=== PATIENT | female | born 1965 | race Caucasian/White ===

== ENCOUNTER 2019-11-03 18:13 | Emergency (ER) | payer BC ==
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
[2019-11-03] MEDS ORDERED: MORPHINE SULFATE 4 MG INJ IM ONE (19:45)
[2019-11-03] MEDS ORDERED: ZOFRAN ODT 4 MG PO ONE (19:46)
[2019-11-03] MEDS ORDERED: ZOFRAN ODT 4 MG ONE (19:55)
[2019-11-03] MEDS ORDERED: DELTASONE 20 MG ONE (19:55)
[2019-11-03] MEDS ORDERED: MORPHINE SULFATE 4 MG INJ ONE (19:56)
[2019-11-03] MEDS ORDERED: PERCOCET TABLET 5/325MG PO STA (21:07)
[2019-11-03] MEDS ORDERED: PERCOCET TABLET 5/325MG ONE (21:09)
[2019-11-03 21:21] VITALS: BP 144/86; PULSE 81; O2SAT 97
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
[2019-11-04] MEDS ORDERED: DELTASONE 20 MG PO ONE (19:47)
== END 2019-11-03 21:14 | disposition home or self-care (01) ==
LOC: ED 18:13
DX: M54.9 Dorsalgia, unspecified (principal); M54.5 Low back pain; S30.0XXA Contusion of lower back and pelvis, initial encounter; V89.2XXA Person injured in unspecified motor-vehicle accident, traffic, initial encounter
CPT/HCPCS: 72100; 72220; 96372; 99284; J2270; Q0162; A9270-GY

== ENCOUNTER 2022-06-24 03:31 | Emergency (ER) | payer BC ==
[2022-06-24 03:46] VITALS: O2SAT 98
[2022-06-24 04:56] LABS: INFLUENZA B NEGATIVE (NEGATIVE); RESPIRATORY SYNCTIAL VIRUS NEGATIVE (Negative); SARS-CoV-2 Xpert Express NEGATIVE (NEGATIVE)
[2022-06-24 04:59] LABS: INFLUENZA A POSITIVE (NEGATIVE)
[2022-06-24] MEDS ORDERED: Sodium Chloride 0.9% 1000 ML 1,000 ML IV STA (05:13)
[2022-06-24] MEDS ORDERED: TORAdol 30 mg Injection IV ONE (05:13)
[2022-06-24] MEDS ORDERED: Tamiflu 75MG Capsule PO ONE ×2 (05:14→05:19)
[2022-06-24] MEDS ORDERED: TYLENOL 325 MG PO ONE (05:14)
[2022-06-24] MEDS ORDERED: TORAdol 30 mg Injection ONE (05:16)
[2022-06-24] MEDS ORDERED: TYLENOL EXTRA STRENGTH 500 MG ONE (05:16)
[2022-06-24] MEDS ORDERED: Sodium Chloride 0.9% 1000 ML 1,000 ML ONE (05:16)
[2022-06-24] MEDS ORDERED: TYLENOL 325 MG ONE (05:20)
--- NOTE | 2022-06-24 05:29 | ERPHSYRPT ---
- History of Present Illness Time Seen by Provider: 06/24/22 05:29 Source: patient Exam Limitations: no limitations Patient Subjective Stated Complaint: pt states she has had a sore throat and dry cough. states her chest is sore and she feels achy all over. did not take temp at home. Triage Nursing Assessment: pt alert and oriented and able to answer questions appropriatly. pt appears comfortable laying in bed on back. pt does not have SOB and )2 is 97% on RA, pt is intermittently coughing. Physician History: Patient is a 57-year-old female presents emergency department for evaluation of sore throat cough and myalgias. Patient states she has been coughing excessively and her throat is raw and chest is burning. Patient has history of asthma. No wheezing. Symptoms started 2 days ago. Symptoms are constant. Symptoms are moderate in intensity. No specific worsening improving factors. Patient voices no other complaints or concerns at this time. Portions of this note were created with voice recognition technology. There may be grammatical, spelling, punctuation or sound alike errors Timing/Duration: day(s) Severity: moderate (2 days ago) Modifying Factors: Improves With: nothing Associated Symptoms: nausea (No nausea currently), No vomiting, No abdominal pain, No shortness of breath, No diaphoresis, No headaches, No syncope, No seizure Allergies/Adverse Reactions: No Known Drug Allergies Allergy (Verified 12/16/12 06:37) Home Medications: Albuterol Sulfate Mdi [Proair Hfa MDI] 2 puff IH DAILY 11/22/12 [History] Fluticasone/Salmeterol [Advair 100-50 Diskus] 1 each IH BID 11/22/12 [History] ALPRAZolam 0.5 MG [xanAX 0.5 MG] 0.5 mg PO HS 11/03/19 [History] Losartan Potassium [Cozaar] 100 mg PO DAILY 11/03/19 [History] Hx Tetanus, Diphtheria Vaccination/Date Given: No Hx Influenza Vaccination/Date Given: Yes Hx Pneumococcal Vaccination/Date Given: No Travel Risk - International Travel Have you traveled outside of the country in past 3 weeks: No - Coronavirus Screening Are you exhibiting any of the following symptoms?: Yes Symptoms: Cough: New Onset, Headaches/Body Aches/Fatigue Close contact with a COVID-19 positive Pt in past 14-21 Days: No - Vaccine Status Have you recieved a Covid-19 vaccination: Yes [employer]rentice: [employer] - Vaccination Dates Date of 2cond Vaccination (if applicable): unknown - Review of Systems Constitutional: No Symptoms, No Fever, No Chills Eyes: No Symptoms Ears, Nose, & Throat: No Symptoms Respiratory: No Symptoms, No Cough, No Dyspnea Cardiac: No Symptoms, No Chest Pain, No Edema, No Syncope Abdominal/Gastrointestinal: No Symptoms, No Abdominal Pain, No Nausea, No Vomiting, No Diarrhea Genitourinary Symptoms: No Symptoms, No Dysuria Musculoskeletal: No Symptoms, No Back Pain, No Neck Pain Skin: No Symptoms, No Rash Neurological: No Symptoms, No Dizziness, No Focal Weakness, No Sensory Changes Psychological: No Symptoms Endocrine: No Symptoms Hematologic/Lymphatic: No Symptoms Immunological/Allergic: No Symptoms All Other Systems: Reviewed and Negative - Past Medical History Pertinent Past Medical History: Yes Neurological History: No Pertinent History ENT History: No Pertinent History Cardiac History: No Pertinent History Respiratory History: Asthma Endocrine Medical History: No Pertinent History Musculoskeletal History: No Pertinent History GI Medical History: Irritable Bowel History: No Pertinent History Psycho-Social History: Anxiety Female Reproductive Disorders: No Pertinent History Other Medical History: recent bacteremia and possible colitis - Past Surgical History Past Surgical History: Yes Neuro Surgical History: No Pertinent History Cardiac: No Pertinent History Respiratory: No Pertinent History Gastrointestinal: Cholecystectomy Genitourinary: Other Musculoskeletal: Other Female Surgical History: Tubal Ligation, Other Other Surgical History: carpal tunnel to rt hand, bladder tucked - Social History Smoking Status: Never smoker Exposure to second hand smoke: No Drug Use: none Patient Lives Alone: No - Nursing Vital Signs Nursing Vital Signs: Initial Vital Signs Temperature 98.8 F 06/24/22 03:35 Pulse Rate 98 H 06/24/22 03:35 Respiratory Rate 18 06/24/22 03:35 Blood Pressure 154/82 06/24/22 03:35 O2 Sat by Pulse Oximetry 97 06/24/22 03:35 Pain Scale Pain Intensity 2 - Physical Exam General Appearance: no apparent distress, alert Eye Exam: PERRL/EOMI, eyes nml inspection Ears, Nose, Throat Exam: normal ENT inspection, TMs normal, pharynx normal, moist mucous membranes, other (Mild pharyngitis) Neck Exam: normal inspection, non-tender, supple, full range of motion Respiratory Exam: normal breath sounds, lungs clear, airway intact, No chest tenderness, No respiratory distress Cardiovascular Exam: regular rate/rhythm, normal heart sounds, normal peripheral pulses Gastrointestinal/Abdomen Exam: soft, normal bowel sounds, No tenderness, No distention, No mass Back Exam: normal inspection, normal range of motion, No CVA tenderness, No vertebral tenderness Extremity Exam: normal inspection, normal range of motion, pelvis stable Neurologic Exam: alert, oriented x 3, cooperative, normal mood/affect, nml cerebellar function, nml station & gait, sensation nml, No motor deficits Skin Exam: normal color, warm, dry, No rash Lymphatic Exam: No adenopathy SpO2 Interpretation: normal SpO2: 98 O2 Delivery: Room Air - Course Nursing assessment & vital signs reviewed: Yes EKG Interpreted by Me: RATE (87), Sinus Rhythm, NORMAL AXIS, NORMAL INTERVALS Ordered Tests: Active Orders 24 hr Category Date Time Status CHEST 1 VIEW (PORTABLE) Stat Exams 06/24/22 03:49 Taken UA W/RFX CULTURE Stat Lab 06/24/22 Ordered Medication Summary Discontinued Medications Generic Name Dose Route Start Last Admin Trade Name Brandonq PRN Reason Stop Dose Admin Acetaminophen 975 mg 06/24/22 05:14 06/24/22 05:21 Acetaminophen 325 Mg Tablet PO 06/24/22 05:15 975 mg STAT ONE Administration Acetaminophen Confirm 06/24/22 05:16 Acetaminophen 500 Mg Tablet Administered 06/24/22 05:17 Dose 1,000 mg .ROUTE .STK-MED ONE Acetaminophen Confirm 06/24/22 05:20 Acetaminophen 325 Mg Tablet Administered 06/24/22 05:21 Dose 975 mg .ROUTE .STK-MED ONE Sodium Chloride 1,000 mls @ 999 mls/hr 06/24/22 05:13 06/24/22 05:21 Sodium Chloride 0.9% 1000 Ml IV 06/24/22 06:13 999 mls/hr .Q1H1M STA Administration Sodium Chloride Confirm 06/24/22 05:16 Sodium Chloride 0.9% 1000 Ml Administered 06/24/22 05:17 Dose 1,000 mls @ ud .ROUTE .STK-MED ONE Ketorolac Tromethamine 30 mg 06/24/22 05:13 06/24/22 05:22 Ketorolac Tromethamine 30 Mg/Ml Inj IV 06/24/22 05:14 30 mg STAT ONE Administration Ketorolac Tromethamine Confirm 06/24/22 05:16 Ketorolac Tromethamine 30 Mg/Ml Inj Administered 06/24/22 05:17 Dose 30 mg .ROUTE .STK-MED ONE Oseltamivir Phosphate 75 mg 06/24/22 05:14 06/24/22 05:22 Oseltamivir 75 Mg Cap PO 06/24/22 05:15 75 mg STAT ONE Administration Oseltamivir Phosphate Confirm 06/24/22 05:19 Oseltamivir 75 Mg Cap Administered 06/24/22 05:20 Dose 75 mg PO .STK-MED ONE Lab/Rad Data: Laboratory Results 06/24/22 06/24/22 06/24/22 Range/Units 06:00 04:18 04:18 Urinalys Dipstick Clnc MAIN LAB Urine Color YELLOW (YELLOW) Urine Appearance CLEAR (CLEAR) Urine pH 7.0 (5-6) Ur Specific [place] 1.025 (1.005-1.025) POC Urine Protein Conf NEGATIVE (Negative) Urine Ketones NEGATIVE (NEGATIVE) Urine Nitrite NEGATIVE (NEGATIVE) Urine Bilirubin NEGATIVE (NEGATIVE) Urine Urobilinogen 0.2 (0-1) mg/dL Urine Leukocytes TRACE A (NEGATIVE) Urine WBC (Auto) 3-5 A (0-5) /HPF Urine RBC (Auto) 3-5 A (0-2) /HPF U Epithel Cells (Auto) RARE (FEW) /HPF Urine Bacteria (Auto) NONE (NEGATIVE) /HPF Urine RBC TRACE-INTACT A (0-5) Kaz/ul Ur Culture Indicated? NO Urine Glucose NEGATIVE (NEGATIVE) mg/dL Influenza Type A Ag POSITIVE (NEGATIVE) Influenza Type B Ag NEGATIVE (NEGATIVE) RSV (PCR) NEGATIVE (Negative) SARS-CoV-2 (PCR) NEGATIVE (NEGATIVE) Group A Strep Antibody NOT DETECTED (NEGATIVE) - Progress Progress: improved Progress Note: Patient reassessed. She feels much better. Patient influenza A positive. Urinalysis negative for UTI. EKG normal sinus rhythm. Symptoms significantly improved. Patient states he is ready for discharge. A prescription for Tamiflu was forwarded to patient's pharmacy along with Fay. Patient understands the importance of hydration and maintenance of nutrition. Patient understands importance of rest. Patient is contagious and is mindful not to pass the influenza infection onto friends family casual encounters. Patient agrees to follow-up with her primary care doctor within 48 hours. Significant other at bedside. They voiced no other complaints or concerns at this time. Portions of this note were created with voice recognition technology. There may be grammatical, spelling, punctuation or sound alike errors 06/24/22 06:28 Counseled pt/family regarding: lab results, diagnosis, rad results - Departure Departure Disposition: Home Clinical Impression: Influenza A Condition: Stable Critical Care Time: No Referrals: LALITO GONG [Primary Care Provider] - Follow up/PCP as directed Additional Instructions: Discharge/Care Plan CHADDANTESUSSYCOSMOREBECAGRAZYNA HUNT was seen on 06/24/22 in the Emergency Room. The patient was counseled regarding Diagnosis,Lab results, Imaging studies, need for follow up and when to return to the Emergency Room. Prescriptions given: Discharge Note I have spoken with the patient and/or caregivers. I have explained the patient's condition, diagnosis and treatment plan based on the information available to me at this time. I have answered the patient's and/or caregiver's questions and addressed any concerns. The patient and/or caregivers have as good understanding of the patient's diagnosis, condition and treatment plan as can be expected at this point. The vital signs have been stable. The patient's condition is stable and appropriate for discharge from the emergency department. The patient will pursue further outpatient evaluation with the primary care physician or other designated or consulting physician as outlined in the discharge instructions. The patient and/or caregivers are agreeable to this plan of care and follow-up instructions have been explained in detail. The patient and/or caregivers have received these instruction. The patient/and or caregivers are aware that any significant change in condition or worsening of symptoms should prompt an immediate return to this or the closest emergency department or call 911. Prescriptions: Ondansetron ODT 4 MG [Zofran Odt 4 mg] 4 mg PO Q6H PRN PRN #10 tablet PRN Reason: Vomiting Oseltamivir 75 mg [Tamiflu 75MG Capsule] 75 mg PO BID #10 cap
[2022-06-24 06:09] LABS: Epithelial Cells RARE /HPF (FEW)
[2022-06-24 06:10] VITALS: BP 99/85; PULSE 95
[2022-06-24 06:13] LABS: Appearance CLEAR (CLEAR); Bilirubin NEGATIVE (NEGATIVE); Glucose NEGATIVE (NEGATIVE); Ketones NEGATIVE (NEGATIVE); RBC TRACE-INTACT Ery/ul (0-5); Specific Gravity 1.025 (1.005-1.025)
[2022-06-24 06:14] LABS: Dipstick done @ ? MAIN LAB; Nitrite NEGATIVE (NEGATIVE); Protein,Urine Dip NEGATIVE (Negative); Urine Cultured Indicated? NO; Urobilinogen 0.2 mg/dL (0-1)
--- NOTE | 2022-06-24 09:09 | XRAY ---
Indication: Cough. Comparison: December 05, 2012 Portable chest remains inflated and clear. Heart not enlarged. Bony thorax intact. No new/acute findings.
== END 2022-06-24 06:50 | disposition home or self-care (01) ==
LOC: ED 03:31
DX: J10.1 Influenza due to other identified influenza virus with other respiratory manifestations (principal); R05.1 Acute cough; M79.10 Myalgia, unspecified site; Z79.899 Other long term (current) drug therapy
CPT/HCPCS: 0241U; 71045; 81015; 87651; 96374; 96375; 99284; J1885; A9270-GY

== ENCOUNTER 2023-03-01 05:39 | Day surgery (SDC) | payer BC ==
[2023-03-01] MEDS ORDERED: Lactated Ringers 1,000 ML IV SCH (06:30)
[2023-03-01 06:37] VITALS: RESP 16
[2023-03-01] MEDS ORDERED: Xylocaine-Mpf 2% 5 Ml Vial ONE (07:28)
[2023-03-01] MEDS ORDERED: DIPRIVAN 200 MG/20 ML IV ONE ×2 (07:28→07:44)
[2023-03-01] MEDS ORDERED: ATROPINE SULFATE 1MG ONE (07:44)
[2023-03-01 08:37] VITALS: BP 101/71; PULSE 84; TEMP 97; O2SAT 96
--- NOTE | 2023-03-01 10:57 | OP ---
SURGERY DATE/TIME: 03/01/2023 6947 PREOPERATIVE DIAGNOSIS: Screening exam. POSTOPERATIVE DIAGNOSIS: Small transverse colon polyp otherwise normal colon. PROCEDURE: Colonoscopy with cold forceps biopsy. SURGEON: Dr. Olguin. ANESTHESIA: Medications given by anesthesia department. HISTORY: The patient is a 57-year-old white female presenting now for screening colonoscopy. She reports she had a previous examination ten years ago which was normal. The patient is here now for screening examination. She was appraised of the risks of the procedure including the risk of perforation, phlebitis, untoward reaction to medication, bleeding and missed lesions. The patient verbalized her understanding and desired to have the procedure performed. DESCRIPTION OF PROCEDURE: The patient was given the medications by the anesthesia department. She had continuous pulse oximetry, ECG monitoring and intermittent blood pressure monitoring during the examination. She was placed in the left lateral decubitus position. A digital rectal examination was performed and revealed normal anal sphincter tone, no masses, a few small external hemorrhoids were noted. The flexible Olympus pediatric colonoscope was used to intubate the rectum. A view of the colon was developed sequentially to the cecum. Upon insertion and withdrawal was noted a small polyp measuring approximately 0.75 cm in size in the transverse colon this is removed using multiple passes with cold forceps biopsy tool. No other mucosal lesions being noted the scope was removed from the patient who tolerated the procedure well and was sent back to OP recovery in good condition. The prep was noted to be good.
== END 2023-03-01 08:44 | disposition home or self-care (01) ==
LOC: SDC 05:39
PROVIDERS: ATTEND Family Medicine
DX: Z12.11 Encounter for screening for malignant neoplasm of colon (principal); D12.3 Benign neoplasm of transverse colon; K64.4 Residual hemorrhoidal skin tags
CPT/HCPCS: J0461; J2704

== ENCOUNTER 2025-04-12 18:19 | Observation (INO) | payer BC ==
[2025-04-12 18:41] LABS: Hematocrit 42.6 % (34.1-44.9); Hemoglobin 13.5 g/dL (11.2-15.7); Mean Corpuscular Hemoglobin 28.1 pg (25.6-32.2); Mean Corpuscular Hgb Concent. 31.7 g/dL (32.2-35.5); Platelet Count 286 x10^3/uL (182-369); Red Blood Count 4.81 x10^6/uL (3.93-5.22); White Blood Count 10.7 x10^3/uL (3.98-10.04)
--- NOTE | 2025-04-12 18:48 | ERPHSYRPT ---
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 The onset was approximately 1730 after she worked all day. Patient also complains of some left upper and left lower extremity weakness. Patient denies chest pain and patient denies shortness of breath. added independent additional history that the patient's friend recently had a stroke with residual symptoms. This may have prompted the patient to come immediately to the hospital for evaluation. There is no head injury. Patient does have a history of anxiety and depression. She also has a history of irritable bowel syndrome, asthma hypertension and arthritis. Timing/Duration: today Severity: mild Character of Deficits: new weakness (Left upper and left lower extremity), altered sensation (Left upper and left lower extremity as well as left facial numbness), Left Facial, LLE, LUE Deficits: no difficulties Baseline/Normal Cognition: alert oriented x 3 Current Cognition: alert oriented x 3 Baseline Gait: walks w/o assistance Associated Symptoms: numbness/tingling in legs/feet (Left upper and left lower extremity as well as left facial numbness), No slurred speech, No trouble walking, No vision changes, No chest pain, No headache Allergies/Adverse Reactions: No Known Drug Allergies Allergy (Verified 04/12/25 19:59) Home Medications: Albuterol Sulfate Mdi [ALBUTEROL/Proair Hfa MDI] 2 puff IH DAILY PRN PRN 11/22/12 [History] Losartan Potassium [Cozaar] 100 mg PO DAILY 11/03/19 [History] Amlodipine Besylate 5 mg [Norvasc 5 mg] 5 mg PO DAILY 01/29/23 [History] Atorvastatin Calcium 40 mg PO DAILY 01/29/23 [History] Escitalopram Oxalate [Lexapro] 20 mg PO DAILY 01/29/23 [History] Multivitamin/Iron/Folic Acid [Centrum Adults Tablet] 1 tab PO DAILY 01/29/23 [History] Valacyclovir HCl [valACYclovir] 1,000 mg PO DAILY PRN PRN 04/12/25 [History] Hx Tetanus, Diphtheria Vaccination/Date Given: No Hx Influenza Vaccination/Date Given: Yes Hx Pneumococcal Vaccination/Date Given: No Travel Risk - International Travel Have you traveled outside of the country in past 3 weeks: No - Emerging Infectious Disease Are you exhibiting symptoms associated with any current EIDs: No - Review of Systems Constitutional: Weakness (Mild left upper and left lower extremity weakness) Eyes: No Symptoms Ears, Nose, & Throat: No Symptoms Respiratory: No Symptoms Cardiac: No Symptoms Abdominal/Gastrointestinal: No Symptoms Genitourinary Symptoms: No Symptoms Musculoskeletal: No Symptoms Skin: No Symptoms Neurological: Parasthesia (Left facial, left upper and left lower extremities), No Dizziness, No Gait Changes, No Headache, No Speech Changes Psychological: No Symptoms Endocrine: No Symptoms Hematologic/Lymphatic: No Symptoms Immunological/Allergic: No Symptoms All Other Systems: Reviewed and Negative - Past Medical History Pertinent Past Medical History: Yes Neurological History: No Pertinent History ENT History: No Pertinent History Cardiac History: Hypertension Respiratory History: Asthma Endocrine Medical History: No Pertinent History Musculoskeletal History: No Pertinent History GI Medical History: Irritable Bowel History: No Pertinent History Psycho-Social History: Anxiety Female Reproductive Disorders: No Pertinent History Other Medical History: recent bacteremia and possible colitis - Past Surgical History Past Surgical History: Yes Neuro Surgical History: No Pertinent History Cardiac: No Pertinent History Respiratory: No Pertinent History Gastrointestinal: Cholecystectomy Genitourinary: Other Musculoskeletal: Joint Replacement, Other Female Surgical History: Hysterectomy, Tubal Ligation, Other Other Surgical History: carpal tunnel to rt hand, bladder tucked, bilateral knee replacement - Social History Smoking Status: Never smoker Exposure to second hand smoke: No - Nursing Vital Signs Nursing Vital Signs: Initial Vital Signs Temperature 97.6 F 04/12/25 18:19 Pulse Rate 68 04/12/25 18:19 Respiratory Rate 18 04/12/25 18:19 Blood Pressure 127/78 04/12/25 18:19 O2 Sat by Pulse Oximetry 100 04/12/25 18:19 Pain Scale Pain Intensity 0 - Everette Coma Scale Best Eye Response (Everette): (4) open spontaneously Best Verbal Response (Radnor): (5) oriented Best Motor Response (Everette): (6) obeys commands Everette Total: 15 - Physical Exam General Appearance: no apparent distress, alert, anxiety Eye Exam: bilateral eye: normal inspection, PERRL, EOMI Ears, Nose, Throat Exam: normal ENT inspection, moist mucous membranes Neck Exam: normal inspection, non-tender, supple, full range of motion Respiratory: normal breath sounds, lungs clear, airway intact, No chest tenderness, No respiratory distress Cardiovascular: regular rate/rhythm, normal heart sounds, normal peripheral pulses Gastrointestinal: soft, normal bowel sounds, No tenderness Pelvic Exam: not done Rectal Exam: not done Back Exam: normal inspection, normal range of motion, No CVA tenderness, No vertebral tenderness Extremity Exam: normal inspection, normal range of motion, pelvis stable Mental Status: alert, oriented x 3, cooperative middle card tender Exam: normal hearing, normal speech, PERRL, facial paresthesias (Left side), tongue midline, No facial droop Motor/Sensory: no motor deficit, no sensory deficit Skin Exam: normal color, warm, dry SpO2 Interpretation: normal SpO2: 99 O2 Delivery: Room Air Comments: NIH SS score 0 - Course Nursing assessment & vital signs reviewed: Yes Ordered Tests: Active Orders 24 hr Category Date Time Status Television Cabinet Finisher STAT Care 04/12/25 18:33 Active EKG-ER Only STAT Care 04/12/25 18:32 Active IV Insertion STAT Care 04/12/25 18:32 Active NPO (ED) STAT Care 04/12/25 18:32 Active POCT Glucose Check STAT Care 04/12/25 18:32 Active Pulse Oximetry (ED) STAT Care 04/12/25 18:[address] ANGIOGRAPHY NECK [CT] Stat Exams 04/12/25 19:56 Taken CTA HEAD W AND/OR WO CONTRAST [CT] Stat Exams 04/12/25 19:56 Taken HEAD WITHOUT CONTRAST [CT] Stat Exams 04/12/25 18:21 Taken CBC W DIFF Stat Lab 04/12/25 18:35 Completed CMP Stat Lab 04/12/25 18:35 Completed Manual Differential NC Stat Lab 04/12/25 18:35 Completed PROTIME WITH INR Stat Lab 04/12/25 18:35 Completed PTT Stat Lab 04/12/25 18:35 Completed UA W/RFX UR CULTURE Stat Lab 04/12/25 19:17 Completed Medication Summary Discontinued Medications Generic Name Dose Route Start Last Admin Trade Name Freq PRN Reason Stop Dose Admin Aspirin 325 mg 04/12/25 20:28 04/12/25 20:53 Aspirin 325 Mg Tablet.Ec PO 04/12/25 20:29 325 mg STAT ONE Administration Lab/Rad Data: Laboratory Result Diagrams 04/12/25 18:35 04/12/25 18:35 Laboratory Results 04/12/25 04/12/25 04/12/25 Range/Units 19:17 18:35 18:35 WBC (3.98-10.04) x10^3/uL RBC (3.93-5.22) x10^6/uL Hgb (11.2-15.7) g/dL Hct (34.1-44.9) % MCV (79.4-94.8) fL MCH (25.6-32.2) pg MCHC (32.2-35.5) g/dL RDW (11.7-14.4) % Plt Count (182-369) x10^3/uL MPV (9.4-12.3) fL Segmented Neutrophils (34.0-71.1) % Lymphocytes (Manual) (19.3-51.7) % Monocytes (Manual) (4.7-12.5) % Eosinophils (Manual) (0.7-5.8) % Platelet Estimate (NORMAL) RBC Morphology PT 10.4 (9.4-12.5) SECONDS INR 0.93 (0.8-3.0) APTT 22.8 L (25.1-36.5) SECONDS Sodium 139 (135-145) mmol/L Potassium 4.0 (3.5-5.1) mmol/L Chloride 105 (98-107) mmol/L Carbon Dioxide 24 (22-30) mmol/L Anion Gap 14.9 (5-15) MEQ/L BUN 20 H (7-17) mg/dL Creatinine 0.93 (0.52-1.04) mg/dL Estimated GFR 70.4 ML/MIN Glucose 101 (74-106) mg/dL Calcium 9.7 (8.4-10.2) mg/dL Total Bilirubin 0.40 (0.2-1.3) mg/dL AST 23 (14-36) U/L ALT 17 (0-35) U/L Alkaline Phosphatase 69 (38-126) U/L Serum Total Protein 7.9 (6.3-8.2) g/dL Albumin 4.8 (3.5-5.0) g/dL Urine Color Yellow (Yellow) Urine Appearance Clear (Clear) Urine pH 5.5 (4.6-8.0) Ur Specific Allyn 1.010 (1.005-1.030) Urine Protein Negative (Negative) Urine Glucose (UA) Negative (Negative) mg/dL Urine Ketones Negative (Negative) Urine Blood Negative (Negative) Urine Nitrite Negative (Negative) Urine Bilirubin Negative (Negative) Urine Urobilinogen 0.2 (0.2) mg/dL Ur Leukocyte Esterase Trace A (Negative) U Hyaline Cast (Auto) NONE SEEN (0-2) /LPF Urine Microscopic RBC 0-2 (0-5) /HPF Urine Microscopic WBC 3-5 (0-5) /HPF Ur Epithelial Cells Rare (None Seen) /HPF Urine Bacteria None Seen (None Seen) /HPF Urine Culture Reflexed NO (NO) 04/12/25 Range/Units 18:35 WBC 10.7 H (3.98-10.04) x10^3/uL RBC 4.81 (3.93-5.22) x10^6/uL Hgb 13.5 (11.2-15.7) g/dL Hct 42.6 (34.1-44.9) % MCV 88.6 (79.4-94.8) fL MCH 28.1 (25.6-32.2) pg MCHC 31.7 L (32.2-35.5) g/dL RDW 13.0 (11.7-14.4) % Plt Count 286 (182-369) x10^3/uL MPV 11.1 (9.4-12.3) fL Segmented Neutrophils 59 (34.0-71.1) % Lymphocytes (Manual) 29 (19.3-51.7) % Monocytes (Manual) 10 (4.7-12.5) % Eosinophils (Manual) 2 (0.7-5.8) % Platelet Estimate NORMAL (NORMAL) RBC Morphology NORMAL PT (9.4-12.5) SECONDS INR (0.8-3.0) APTT (25.1-36.5) SECONDS Sodium (135-145) mmol/L Potassium (3.5-5.1) mmol/L Chloride (98-107) mmol/L Carbon Dioxide (22-30) mmol/L Anion Gap (5-15) MEQ/L BUN (7-17) mg/dL Creatinine (0.52-1.04) mg/dL Estimated GFR ML/MIN Glucose (74-106) mg/dL Calcium (8.4-10.2) mg/dL Total Bilirubin (0.2-1.3) mg/dL AST (14-36) U/L ALT (0-35) U/L Alkaline Phosphatase (38-126) U/L Serum Total Protein (6.3-8.2) g/dL Albumin (3.5-5.0) g/dL Urine Color (Yellow) Urine Appearance (Clear) Urine pH (4.6-8.0) Ur Specific Allyn (1.005-1.030) Urine Protein (Negative) Urine Glucose (UA) (Negative) mg/dL Urine Ketones (Negative) Urine Blood (Negative) Urine Nitrite (Negative) Urine Bilirubin (Negative) Urine Urobilinogen (0.2) mg/dL Ur Leukocyte Esterase (Negative) U Hyaline Cast (Auto) (0-2) /LPF Urine Microscopic RBC (0-5) /HPF Urine Microscopic WBC (0-5) /HPF Ur Epithelial Cells (None Seen) /HPF Urine Bacteria (None Seen) /HPF Urine Culture Reflexed (NO) - Progress Progress: improved, re-examined Progress Note: 04/12/25 18:56 My medical decision making and the assignment of high complexity of this patient's medical issue today is based on review of the patient's past medical history, review the patient's medication list, review of the patient's drug allergy list, history of present illness and physical findings on examination. The workup in this patient includes stat CT scan of the head without contrast. If this is negative we will perform a CT angio of the neck and CT scan of the head with contrast, we will obtain teleneurology consultation, CBC, CMP, PT/INR/PTT, urinalysis, twelve-lead EKG. Differential diagnosis includes but is not limited to anxiety about health, electrolyte abnormalities, hypoglycemia, hyperglycemia, urinary tract infection, dehydration, acute intracranial abnormality, TIA, CVA 04/12/25 20:37 I did speak with the teleneurologist, Dr. Kamara. The patient was already examined by her. She did also review the CT scan of the head without contrast. She is currently in this patient's condition a TIA. She recommends a baby aspirin, placing the patient in the hospital on observation status and perform MRI of the brain, hemoglobin A1c and lipid panel. I will also add an echocardiogram. I will contact the telehospitalist and we will place her in observation if the hospitalist is agreeable. 04/12/25 21:06 I interpreted the patient's laboratory data results. Based on laboratory data results there are no acute, emergent medical issues. The CT scan of the head without contrast was interpreted by the radiologist and I reviewed the impression. The impression states no acute intracranial abnormality. I spoke with telehospitalist Dr. Luther. I reviewed the patient history, physical findings on examination and chief complaint as well as the workup results and the discussion I had with the teleneurologist. He agrees to except this patient to be placed in the hospital on observation status. Counseled pt/family regarding: lab results, diagnosis, rad results Medical Desision Making - Independent Historian Additional History obtained from: Spouse - Diagnostic Testing Diagnostic test were ordered, analyzed, and reviewed by me: Yes Radiological Interpretation: Reviewed by me, Teleradiologist Report - Risk of complications The pt has a high risk of morbidity or mortality based on: Decision regarding hospitilization or escalation of hosp level of care - Departure Departure Disposition: Observation Clinical Impression: TIA (transient ischemic attack) Condition: Stable Critical Care Time: Yes Critical Care Time(excluding separately billable procedures): Critical 30-74 mins (50) Referrals: [facility]EN[facility]REILL[facility] [Primary Care Provider, [facility]] - Follow up/PCP as directed
[2025-04-12 18:55] LABS: Calcium 9.7 mg/dL (8.4-10.2); Carbon Dioxide 24.0 mmol/L (22-30); Creatinine 1 0.93 mg/dL (0.52-1.04); EST GLOMERULAR FILTRATION RATE 70.4 ML/MIN; Glucose 101.0 mg/dL (74-106); Potassium 4.0 mmol/L (3.5-5.1); SGOT/AST 23.0 U/L (14-36); SGPT/ALT 17.0 U/L (0-35); Total Protein 7.9 g/dL (6.3-8.2)
[2025-04-12 18:56] LABS: INR 0.93 (0.8-3.0); PROTIME 10.4 SECONDS (9.4-12.5); PTT 22.8 SECONDS (25.1-36.5)
[2025-04-12 19:28] LABS: Glucose, Urine Negative (Negative); Protein,Urine Dip Negative (Negative); RBC 0-2 /HPF (0-5)
[2025-04-12 20:45] LABS: Total Cells Counted 100
[2025-04-12] MEDS: Ecotrin 325 MG PO ONE (20:53)
[2025-04-12] MEDS ORDERED: TYLENOL 325 MG PO PRN (21:55)
[2025-04-12] MEDS ORDERED: NON-FORMULARY ITEM (Albuterol Sulfate Mdi*** 8.5 GM Hfa.Aer.Ad) IH PRN (22:05)
[2025-04-12] MEDS ORDERED: NON-FORMULARY ITEM (Valacyclovir Hcl [Valacyclovir] 1,000 MG Tablet) PO PRN (22:05)
[2025-04-13 04:58] LABS: BASOPHIL % 1.3 % (0.1-1.2); Basophil (Absolute #) 0.09 x10^3/uL (0.01-0.08); Eosinophil (Absolute #) 0.14 x10^3/uL (0.04-0.36); Hematocrit 40.2 % (34.1-44.9); Hemoglobin 13.4 g/dL (11.2-15.7); IMMATURE GRAN # 0.02 x10^3u/L (0.001-0.031); IMMATURE GRAN % 0.3 % (0.001-0.429); Lymphocyte (Absolute #) 2.58 x10^3/uL (1.18-3.74); Mean Corpuscular Hemoglobin 29.0 pg (25.6-32.2); Mean Corpuscular Hgb Concent. 33.3 g/dL (32.2-35.5); Monocyte (Absolute #) 0.74 x10^3/uL (0.24-0.86); NUCLEATED RBC # 0.00 x10^3u/L (0.00-0.012); NUCLEATED RBC % 0.0 % (0.00-0.2); Platelet Count 266 x10^3/uL (182-369); Red Blood Count 4.62 x10^6/uL (3.93-5.22); White Blood Count 7.2 x10^3/uL (3.98-10.04)
[2025-04-13 05:34] LABS: Calcium 9.6 mg/dL (8.4-10.2); Carbon Dioxide 24.0 mmol/L (22-30); Cholesterol 140.0 mg/dL (50-200); Creatinine 1 0.64 mg/dL (0.52-1.04); EST GLOMERULAR FILTRATION RATE 101.1 ML/MIN; Glucose 98.0 mg/dL (74-106); LDL, DIRECT 65.0 mg/dL (30-100); Potassium 3.9 mmol/L (3.5-5.1); SGOT/AST 21.0 U/L (14-36); SGPT/ALT 17.0 U/L (0-35); TRIGLYCERIDE 128.0 mg/dL (30-150); Total Protein 7.0 g/dL (6.3-8.2)
[2025-04-13] MEDS ORDERED: VENTOLIN COMMON CANISTER IH PRN (07:07)
[2025-04-13] MEDS ORDERED: ACYCLOVIR PO PRN (07:10)
[2025-04-13] MEDS: Lexapro PO SCH (09:03)
[2025-04-13] MEDS: ECOTRIN 81 MG PO SCH (09:04)
[2025-04-13] MEDS: THERAGRAN MULTIVITAMIN PO SCH (09:04)
[2025-04-13] MEDS: LIPITOR 40MG PO SCH (09:04)
--- NOTE | 2025-04-13 09:32 | XRAY ---
Indication: Left arm numbness. Multiple contiguous axial images obtained through the head without contrast Comparison: None Normal appearing brain parenchyma, ventricles, and bony calvarium for patient's age. Visualized paranasal sinuses and mastoid air cells are clear. Impression: Normal CT head without contrast exam.
--- NOTE | 2025-04-13 09:36 | XRAY ---
Indication: Left facial and extremity numbness. Normal CT head exam. Conventional contrast enhanced CTA neck performed using 80 cc Isovue 370 contrast. 2-D sagittal and coronal reformatted images obtained. Additional 3-D reformatted images obtained using separate workstation. Comparison: None Visualized aortic arch, right brachiocephalic, left common carotid, and left subclavian arteries are normal in CTA appearance. Also normal CTA appearance to the common carotid, carotid bulb, internal carotid, and external carotid arteries bilaterally. Vertebral arteries are bilaterally patent with the left larger in caliber. Visualized soft tissues demonstrates a few centimeter/subcentimeter cervical and submandibular lymph nodes, none pathologically enlarged. Parotid and submandibular glands bilaterally symmetric. Thyroid gland enhances homogeneously. Supra-and infraglottic airway widely patent. Lung apices clear. Osseous structures intact with osteopenia and minimal/mild multilevel cervical degenerative spondylosis greatest at C5-C6. Incidental anatomic variant for nonunited posterior arch C1. Impression: Normal CTA neck. Incidental chronic bony findings.
--- NOTE | 2025-04-13 09:38 | XRAY ---
Indication: Left facial and left extremity numbness. Normal CT head exam. Conventional contrast enhanced CTA head performed using 80 cc Isovue 370 contrast. 2-D sagittal and coronal reformatted images obtained. Additional 3-D reformatted images obtained using separate workstation. Comparison: None Distal internal carotid arteries are bilaterally symmetric with very minimal arteriosclerotic calcifications in both parasellar segments without critical stenosis/obstruction. Normal carotid terminus with normal branching A1 and M1 segments bilaterally. More distal anterior cerebral and middle cerebral arteries are normal in CTA appearance bilaterally. Posterior circulation demonstrates normal CTA appearance to the bibasilar, left/right posterior cerebral, and left/right superior cerebellar arteries. Venous sinuses/drainage unremarkable. Brain parenchyma negative for abnormal intra or extra-axial enhancement. Impression: Very minimal arteriosclerotic disease in both parasellar internal carotid arteries without critical stenosis/occlusion. Remaining CTA head with contrast exam is normal.
[2025-04-13] MEDS ORDERED: NON-FORMULARY ITEM (Multivitamin/Iron/Folic Acid [Centrum Adults Tablet] 1 EACH Tablet) PO SCH (10:00)
[2025-04-13] MEDS ORDERED: BABY ASPIRIN 81 MG CHEW PO SCH (10:00)
[2025-04-13 11:29] VITALS: BP 119/60; PULSE 72; RESP 18; TEMP 97.6; O2SAT 96
--- NOTE | 2025-04-13 11:31 | PCM.DS ---
Discharge Summary Date of Admission: 04/12/25 21:36 Date of Discharge: 04/13/25 Admitting Physician: NIKHIL HERRING MD Primary Care Provider: NENITA OREILLY Allergies Allergies No Known Drug Allergies Allergy (Verified 04/12/25 19:59) Hospital Summary - Hospital Course Hospital Course: 04/12/25 The patient is a 59-year-old female with a history of hypertension and hyperlipidemia who presented to the ED on 04/12/25 with complaints of left-sided facial, arm, and leg numbness that began around 1730 after returning home from work. She denied weakness, vision or speech changes, dysphagia, chest pain, shortness of breath, nausea, vomiting, fever, or chills. The numbness improved significantly since onset, though she did report palpitations at the time of symptoms. CT head and CTA head showed no acute process. Teleneurology was consulted, and findings were most consistent with a transient ischemic attack (TIA). Recommendations included initiation of ASA 81 mg daily, MRI brain, MRA, echocardiogram, lipid panel, and hemoglobin A1c. On 04/13, the patients neurological exam remained non-concerning and without focal deficits. Laboratory results, including lipid panel and A1c, were reviewed, and MRI/MRA are pending at the time of discharge. The patient is clinically stable, reports no further concerns, and wishes to discharge home. She will continue ASA 81 mg daily and follow up as an outpatient with neurology and her primary care provider for ongoing evaluation and management. - Vitals & Intake/Output Vital Signs: Vital Signs Temperature 98.7 F 04/13/25 08:00 Pulse Rate 70 04/13/25 08:00 Respiratory Rate 16 04/13/25 08:00 Blood Pressure 133/75 04/13/25 08:00 O2 Sat by Pulse Oximetry 94 L 04/13/25 08:00 Intake & Output: Intake & Output 04/10/25 04/11/25 04/12/25 04/13/25 11:59 11:59 11:59 11:59 Intake Total 540 Output Total 1000 Balance -460 Weight 80 kg - Lab Result Diagrams: 04/13/25 04:27 04/13/25 04:27 Lab Results-Last 24 Hrs: Lab Results-Last 24 Hours 04/12/25 04/12/25 04/12/25 Range/Units 18:35 18:35 18:35 WBC 10.7 H (3.98-10.04) x10^3/uL RBC 4.81 (3.93-5.22) x10^6/uL Hgb 13.5 (11.2-15.7) g/dL Hct 42.6 (34.1-44.9) % MCV 88.6 (79.4-94.8) fL MCH 28.1 (25.6-32.2) pg MCHC 31.7 L (32.2-35.5) g/dL RDW 13.0 (11.7-14.4) % Plt Count 286 (182-369) x10^3/uL MPV 11.1 (9.4-12.3) fL Gran % (34.0-71.1) % Immature Gran % (Auto) (0.001-0.429) % Nucleat RBC Rel Count (0.00-0.2) % Eos # (Auto) (0.04-0.36) x10^3/uL Immature Gran # (Auto) (0.001-0.031) x10^3u/L Absolute Lymphs (auto) (1.18-3.74) x10^3/uL Absolute Monos (auto) (0.24-0.86) x10^3/uL Absolute Nucleated RBC (0.00-0.012) x10^3u/L Lymphocytes % (19.3-51.7) % Monocytes % (4.7-12.5) % Eosinophils % (0.7-5.8) % Basophils % (0.1-1.2) % Absolute Granulocytes (1.56-6.13) x10^3/uL Segmented Neutrophils 59 (34.0-71.1) % Lymphocytes (Manual) 29 (19.3-51.7) % Monocytes (Manual) 10 (4.7-12.5) % Eosinophils (Manual) 2 (0.7-5.8) % Basophils # (0.01-0.08) x10^3/uL Platelet Estimate NORMAL (NORMAL) RBC Morphology NORMAL PT 10.4 (9.4-12.5) SECONDS INR 0.93 (0.8-3.0) APTT 22.8 L (25.1-36.5) SECONDS Sodium 139 (135-145) mmol/L Potassium 4.0 (3.5-5.1) mmol/L Chloride 105 (98-107) mmol/L Carbon Dioxide 24 (22-30) mmol/L Anion Gap 14.9 (5-15) MEQ/L BUN 20 H (7-17) mg/dL Creatinine 0.93 (0.52-1.04) mg/dL Estimated GFR 70.4 ML/MIN Glucose 101 (74-106) mg/dL Hemoglobin A1c (4.5-6.0) % Calcium 9.7 (8.4-10.2) mg/dL Total Bilirubin 0.40 (0.2-1.3) mg/dL AST 23 (14-36) U/L ALT 17 (0-35) U/L Alkaline Phosphatase 69 (38-126) U/L Serum Total Protein 7.9 (6.3-8.2) g/dL Albumin 4.8 (3.5-5.0) g/dL Triglycerides (30-150) mg/dL Cholesterol (50-200) mg/dL LDL Cholesterol (30-100) mg/dL HDL Cholesterol (40-60) mg/dL Heart Disease Risk Ratio Urine Color (Yellow) Urine Appearance (Clear) Urine pH (4.6-8.0) Ur Specific [place] (1.005-1.030) Urine Protein (Negative) Urine Glucose (UA) (Negative) mg/dL Urine Ketones (Negative) Urine Blood (Negative) Urine Nitrite (Negative) Urine Bilirubin (Negative) Urine Urobilinogen (0.2) mg/dL Ur Leukocyte Esterase (Negative) U Hyaline Cast (Auto) (0-2) /LPF Urine Microscopic RBC (0-5) /HPF Urine Microscopic WBC (0-5) /HPF Ur Epithelial Cells (None Seen) /HPF Urine Bacteria (None Seen) /HPF Urine Culture Reflexed (NO) 04/12/25 04/13/25 04/13/25 Range/Units 19:17 04:27 04:27 WBC 7.2 (3.98-10.04) x10^3/uL RBC 4.62 (3.93-5.22) x10^6/uL Hgb 13.4 (11.2-15.7) g/dL Hct 40.2 (34.1-44.9) % MCV 87.0 (79.4-94.8) fL MCH 29.0 (25.6-32.2) pg MCHC 33.3 (32.2-35.5) g/dL RDW 13.1 (11.7-14.4) % Plt Count 266 (182-369) x10^3/uL MPV 11.4 (9.4-12.3) fL Gran % 50.1 (34.0-71.1) % Immature Gran % (Auto) 0.3 (0.001-0.429) % Nucleat RBC Rel Count 0.0 (0.00-0.2) % Eos # (Auto) 0.14 (0.04-0.36) x10^3/uL Immature Gran # (Auto) 0.02 (0.001-0.031) x10^3u/L Absolute Lymphs (auto) 2.58 (1.18-3.74) x10^3/uL Absolute Monos (auto) 0.74 (0.24-0.86) x10^3/uL Absolute Nucleated RBC 0.00 (0.00-0.012) x10^3u/L Lymphocytes % 36.0 (19.3-51.7) % Monocytes % 10.3 (4.7-12.5) % Eosinophils % 2.0 (0.7-5.8) % Basophils % 1.3 H (0.1-1.2) % Absolute Granulocytes 3.59 (1.56-6.13) x10^3/uL Segmented Neutrophils (34.0-71.1) % Lymphocytes (Manual) (19.3-51.7) % Monocytes (Manual) (4.7-12.5) % Eosinophils (Manual) (0.7-5.8) % Basophils # 0.09 H (0.01-0.08) x10^3/uL Platelet Estimate (NORMAL) RBC Morphology PT (9.4-12.5) SECONDS INR (0.8-3.0) APTT (25.1-36.5) SECONDS Sodium (135-145) mmol/L Potassium (3.5-5.1) mmol/L Chloride (98-107) mmol/L Carbon Dioxide (22-30) mmol/L Anion Gap (5-15) MEQ/L BUN (7-17) mg/dL Creatinine (0.52-1.04) mg/dL Estimated GFR ML/MIN Glucose (74-106) mg/dL Hemoglobin A1c 5.24 (4.5-6.0) % Calcium (8.4-10.2) mg/dL Total Bilirubin (0.2-1.3) mg/dL AST (14-36) U/L ALT (0-35) U/L Alkaline Phosphatase (38-126) U/L Serum Total Protein (6.3-8.2) g/dL Albumin (3.5-5.0) g/dL Triglycerides (30-150) mg/dL Cholesterol (50-200) mg/dL LDL Cholesterol (30-100) mg/dL HDL Cholesterol (40-60) mg/dL Heart Disease Risk Ratio Urine Color Yellow (Yellow) Urine Appearance Clear (Clear) Urine pH 5.5 (4.6-8.0) Ur Specific [place] 1.010 (1.005-1.030) Urine Protein Negative (Negative) Urine Glucose (UA) Negative (Negative) mg/dL Urine Ketones Negative (Negative) Urine Blood Negative (Negative) Urine Nitrite Negative (Negative) Urine Bilirubin Negative (Negative) Urine Urobilinogen 0.2 (0.2) mg/dL Ur Leukocyte Esterase Trace A (Negative) U Hyaline Cast (Auto) NONE SEEN (0-2) /LPF Urine Microscopic RBC 0-2 (0-5) /HPF Urine Microscopic WBC 3-5 (0-5) /HPF Ur Epithelial Cells Rare (None Seen) /HPF Urine Bacteria None Seen (None Seen) /HPF Urine Culture Reflexed NO (NO) 04/13/25 Range/Units 04:27 WBC (3.98-10.04) x10^3/uL RBC (3.93-5.22) x10^6/uL Hgb (11.2-15.7) g/dL Hct (34.1-44.9) % MCV (79.4-94.8) fL MCH (25.6-32.2) pg MCHC (32.2-35.5) g/dL RDW (11.7-14.4) % Plt Count (182-369) x10^3/uL MPV (9.4-12.3) fL Gran % (34.0-71.1) % Immature Gran % (Auto) (0.001-0.429) % Nucleat RBC Rel Count (0.00-0.2) % Eos # (Auto) (0.04-0.36) x10^3/uL Immature Gran # (Auto) (0.001-0.031) x10^3u/L Absolute Lymphs (auto) (1.18-3.74) x10^3/uL Absolute Monos (auto) (0.24-0.86) x10^3/uL Absolute Nucleated RBC (0.00-0.012) x10^3u/L Lymphocytes % (19.3-51.7) % Monocytes % (4.7-12.5) % Eosinophils % (0.7-5.8) % Basophils % (0.1-1.2) % Absolute Granulocytes (1.56-6.13) x10^3/uL Segmented Neutrophils (34.0-71.1) % Lymphocytes (Manual) (19.3-51.7) % Monocytes (Manual) (4.7-12.5) % Eosinophils (Manual) (0.7-5.8) % Basophils # (0.01-0.08) x10^3/uL Platelet Estimate (NORMAL) RBC Morphology PT (9.4-12.5) SECONDS INR (0.8-3.0) APTT (25.1-36.5) SECONDS Sodium 140 (135-145) mmol/L Potassium 3.9 (3.5-5.1) mmol/L Chloride 108 H (98-107) mmol/L Carbon Dioxide 24 (22-30) mmol/L Anion Gap 11.8 (5-15) MEQ/L BUN 13 (7-17) mg/dL Creatinine 0.64 (0.52-1.04) mg/dL Estimated GFR 101.1 ML/MIN Glucose 98 (74-106) mg/dL Hemoglobin A1c (4.5-6.0) % Calcium 9.6 (8.4-10.2) mg/dL Total Bilirubin 0.60 (0.2-1.3) mg/dL AST 21 (14-36) U/L ALT 17 (0-35) U/L Alkaline Phosphatase 63 (38-126) U/L Serum Total Protein 7.0 (6.3-8.2) g/dL Albumin 4.3 (3.5-5.0) g/dL Triglycerides 128 (30-150) mg/dL Cholesterol 140 (50-200) mg/dL LDL Cholesterol 65 (30-100) mg/dL HDL Cholesterol 38 L (40-60) mg/dL Heart Disease Risk Ratio 4.0 Urine Color (Yellow) Urine Appearance (Clear) Urine pH (4.6-8.0) Ur Specific [place] (1.005-1.030) Urine Protein (Negative) Urine Glucose (UA) (Negative) mg/dL Urine Ketones (Negative) Urine Blood (Negative) Urine Nitrite (Negative) Urine Bilirubin (Negative) Urine Urobilinogen (0.2) mg/dL Ur Leukocyte Esterase (Negative) U Hyaline Cast (Auto) (0-2) /LPF Urine Microscopic RBC (0-5) /HPF Urine Microscopic WBC (0-5) /HPF Ur Epithelial Cells (None Seen) /HPF Urine Bacteria (None Seen) /HPF Urine Culture Reflexed (NO) Micro Results-Entire Visit: Accuchecks Date 04/12/25 Date 04/12/25 Time 18:20 Time 18:19 - Radiology Exams Ordered Rad Exams-Entire Visit: Radiology Procedures Category Date Time Status CT ANGIOGRAPHY NECK [CT] Stat Exams 04/12/25 19:56 Completed CTA HEAD W AND/OR WO CONTRAST [CT] Stat Exams 04/12/25 19:56 Completed ECHO W/2D AND DOPPLER [US] Stat Exams 04/13/25 21:11 Taken HEAD WITHOUT CONTRAST [CT] Stat Exams 04/12/25 18:21 Completed MRI BRAIN W/O CONTRAST [MRI] Stat Exams 04/13/25 08:00 Ordered - Procedures and Test Procedures and Tests throughout Hospitalization: Therapy Orders & Screens 04/12/25 21:55 EKG REPEAT IN AM Comment: 04/12/25 22:02 ST Screen per Nursing Assess ONCE Comment: Protocol Order Physician Instructions: Greater than [address] Admission Screening Reason For Exam: Triggered on Admission Diagnosis: TIA CVA/Dysphagia/Aphasia: Yes Cognitive Deficits: No Dehydration/Nutrition Deficit: No Reflux: No Oral-Motor Difficulties: No Pneumonia: No Intermediate Resident: No Total Points: 5 04/13/25 07:39 PT Eval & Treat (MD Order) ONCE Reason for Eval:: TIA Diagnosis: TIA OT Eval and Treat (MD Order) ONCE Comment: Physician Instructions: Reason For Exam: Diagnosis: TIA 04/13/25 07:40 ST Eval & Treat (MD Order) .as ordered Comment: Physician Instructions: Reason For Exam: Evaluate: Yes: TIA Treat: Yes Reason for Eval: TIA Diagnosis: TIA Discharge Exam General Appearance: no apparent distress, alert Neurologic Exam: alert, oriented x 3, cooperative, field health officer II-XII nml as tested, normal mood/affect, nml cerebellar function, sensation nml, No motor deficits Eye Exam: PERRL, EOMI, eyes nml inspection Ears, Nose, Throat Exam: normal ENT inspection, pharynx normal, moist mucous membranes Neck Exam: normal inspection, non-tender, supple, full range of motion Respiratory Exam: normal breath sounds, lungs clear, No respiratory distress Cardiovascular Exam: regular rate/rhythm, normal heart sounds Gastrointestinal/Abdomen Exam: soft, No tenderness, No mass Pelvic Exam: deferred Rectal Exam: deferred Back Exam: normal inspection, normal range of motion, No CVA tenderness, No vertebral tenderness Extremity Exam: normal inspection, normal range of motion Skin Exam: normal color, warm, dry Final Diagnosis/Problem List - Final Discharge Diagnosis/Problem (1) TIA (transient ischemic attack) Current Visit: Yes Status: Acute Assessment & Plan: - CT head: Impression: Normal CT head without contrast exam - CT angiography: Impression: Normal CTA neck. Incidental chronic bony findings. - CTA Head: Impression: Very minimal arteriosclerotic disease in both parasellar internal carotid arteries without critical stenosis/occlusion. Remaining CTA head with contrast exam is normal. - MRI: IMPRESSION: 1. No hyperacute or acute infarctions could be depicted. 2. Early chronic microvascular ischemic angiopathy is present. 3. No interval changes. - Echo- f/u OP with PCP for results - Lipid panel reviewed- HDL low - ASA 81 mg daily - CBC, CMP reviewed - F/U OP with neurology - Tele - EKG - A1C 5.24 - PT/OT/ST - Neuro checks - Atorvastatin 80mg Daily Code(s): G45.9 - TRANSIENT CEREBRAL ISCHEMIC ATTACK, UNSPECIFIED (2) Low HDL (under 40) Current Visit: Yes Status: Acute Assessment & Plan: - HDL 38 - Advised diet and exercise changes Code(s): E78.6 - LIPOPROTEIN DEFICIENCY (3) Hyperlipidemia Current Visit: Yes Status: Acute Assessment & Plan: - Continue statin Code(s): E78.5 - HYPERLIPIDEMIA, UNSPECIFIED (4) HTN (hypertension) Current Visit: No Status: Chronic Code(s): I10 - ESSENTIAL (PRIMARY) HYPERTENSION (5) Obesity (BMI 30.0-34.9) Current Visit: Yes Status: Chronic Assessment & Plan: - Advised Diet and exercise control Code(s): E66.811 - OBESITY, CLASS 1 - Discharge Discharge Date: 04/13/25 Disposition: Home, Self-Care Condition: Stable Prescriptions: New Aspirin EC 81 mg [Ecotrin 81 mg] 81 mg PO DAILY 30 Days #30 tablet Atorvastatin Calcium [Lipitor] 80 mg PO HS 30 Days #30 tablet Continue Albuterol Sulfate Mdi [ALBUTEROL/Proair Hfa MDI] 2 puff IH DAILY PRN PRN PRN Reason: Shortness Of Breath Losartan Potassium [Cozaar] 100 mg PO DAILY Escitalopram Oxalate [Lexapro] 20 mg PO DAILY Amlodipine Besylate 5 mg [Norvasc 5 mg] 5 mg PO DAILY Multivitamin/Iron/Folic Acid [Centrum Adults Tablet] 1 tab PO DAILY Valacyclovir HCl [Valacyclovir] 1,000 mg PO DAILY PRN PRN PRN Reason: herpes breakout Discontinued Atorvastatin Calcium 40 mg PO DAILY Instructions: Transient ischemic attack Follow up with: KAROLYN VEGA [NON-STAFF PHY W/O PRIVILEGES, NEUROLOGY] - 09/17/25 9:00 am Referral Note: LOCATED IN [facility] Problems: TIA (transient ischemic attack) NENITA OREILLY NP [Primary Care Provider, [facility]] - 04/23/25 11:00 am
--- NOTE | 2025-04-13 14:49 | XRAY ---
CLINICAL HISTORY: TIA COMPARISON: CT dated 04/12/2025 was reviewed. TECHNIQUE: Different pulse sequences were performed in different planes of the brain without GD-DTPA injection. Images were sent through PACS for interpretation. FINDINGS: Brain Parenchyma: No hyperacute or acute infarctions could be depicted. Bilateral discrete as well as confluent T2 and FLAIR hyperintense foci are seen in the bilateral centrum semi-ovale, wiggins radiata, and periventricular locations, with no diffusion restriction ([id number] 2). Prominent Virchow-Matthew spaces of the centrum semi-ovale and basal ganglia. No shift of midline structures. No intracerebral or extra-axial hematomas or masses. Ventricular System: Ventricles are normal in size and configuration. No evidence of hydrocephalus or ventricular enlargement. Subarachnoid Spaces: The sulci and cisterns are normal. No evidence of subarachnoid hemorrhage or extra-axial fluid collections. Cerebellum and Brainstem: The cerebellum and brainstem are normal in size and signal. No masses, lesions, or areas of abnormal signal. Orbits: The globes, optic nerves, and extraocular muscles have a normal appearance. No evidence of orbital masses or abnormal signal. Sinuses: A mucous retention cyst is present in the left maxillary sinus. Mastoid Air Cells: The mastoid air cells are clear. No evidence of mastoiditis. Skull: Skull morphology is normal. A trichilemmal cyst is seen in the top parietal region. IMPRESSION: 1. No hyperacute or acute infarctions could be depicted. 2. Early chronic microvascular ischemic angiopathy is present. 3. No interval changes. Electronically Signed by: Humza Nelson MD. (04/13/2025 14:10:26 EDT)
== END 2025-04-13 15:20 | disposition home or self-care (01) ==
LOC: ED 18:19 → MED SURG 21:36
PROVIDERS: ADMIT Internal Medicine; ATTEND Internal Medicine
DX: G45.9 Transient cerebral ischemic attack, unspecified (principal); E78.6 Lipoprotein deficiency; E78.5 Hyperlipidemia, unspecified; I10 Essential (primary) hypertension; E66.811 Obesity, class 1; R20.2 Paresthesia of skin; Z79.899 Other long term (current) drug therapy
CPT/HCPCS: 36415; 70450; 70496; 70498; 70551; 80053; 80061; 81001; 83036; 83721; 85025; 85610; 85730; 93005; 93041; 93268; 93306; 94760; 97161; 97165; 99291; G0378